=== PATIENT | female | born 1995 ===

== ENCOUNTER 2022-05-06 13:34 | Emergency (ER) | payer SELFPAY ==
[~2022-05-06] VITALS: Ht 162.6 cm; Wt 70.0 kg
[2022-05-06 13:43] VITALS: BP 117/64
[2022-05-06] MEDS ORDERED: SULF-261 PO (14:19)
== END 2022-05-06 14:50 | disposition home or self-care (01) ==
LOC: EMS 13:38
DX: L02.412 Cutaneous abscess of left axilla (principal); L03.112 Cellulitis of left axilla; F15.90 Other stimulant use, unspecified, uncomplicated; F17.210 Nicotine dependence, cigarettes, uncomplicated; J45.909 Unspecified asthma, uncomplicated; Z88.0 Allergy status to penicillin; Z91.010 Allergy to peanuts
CPT/HCPCS: 99283; Z7502